=== PATIENT | female | born 1965 | race Caucasian/White ===

== ENCOUNTER 2019-06-27 13:02 | Emergency (ER) | payer OTHER ==
--- NOTE | 2019-06-27 13:12 | PDOC ---
Rapid Medical Evaluation Time Seen by Provider: 06/27/19 13:10 Medical Evaluation: 06/27/19 13:11 I have performed a brief in-person evaluation of this patient. The patient presents with a chief complaint of: "My left knee is swollen." Pertinent physical exam findings: No erythema, bony tenderness, restricted ROM. Minimal swelling to suprapatellar area. I have ordered the following: motrin, xray The patient will proceed to the ED for further evaluation. Discharge Disposition - Diagnosis Left knee pain - Referrals - Patient Instructions - Post Discharge Activity
[2019-06-27] MEDS ORDERED: IBUPROFEN 600 MG TABLET (FP) PO ONE ×2 (13:13→13:23)
[2019-06-27 13:14] VITALS: BP 118/79; PULSE 76; TEMP 98.7; BMI 22.6
--- NOTE | 2019-06-27 14:16 | PDOC ---
History of Present Illness - General Chief Complaint: Pain, Acute Stated Complaint: LT KNEE PAIN Time Seen by Provider: 06/27/19 13:10 History Source: Patient Exam Limitations: No Limitations - History of Present Illness Initial Comments: 06/27/19 14:01 53-year-old female presents to ED with 3 days of left knee pain worsened with ambulation. Patient denies trauma or previous injury to the affected area. Patient states pain an aching sensation without radiation distally or proximally. Patient also denies any skin discoloration history of gout or arthritis. Occurred: reports: other Severity: Yes: mild Lower Extremity Pain Location: left: knee Method of Injury: Yes: other Modifying Factors: improves with: None Lower Ext. Injury Location - Specific Injury Location Knees: left no evidence of injury, left normal range of motion, left non-tender , left normal inspection, left soft tissue tenderness, left deformity, left bone tenderness, left ecchymosis, left joint effusion (mild) Extremity Pain Location - Extremity Pain Location Extremity Pain Locations: left: knee Past History - Travel Traveled outside of the country in the last 30 days: No Close contact w/someone who was outside of country & ill: No - Past Medical History Allergies/Adverse Reactions: Allergies Allergy/AdvReac Type Severity Reaction Status Date / Time No Known Allergies Allergy Verified 06/27/19 13:14 Home Medications: Ambulatory Orders NK [No Known Home Medication] 06/27/19 COPD: No Other medical history: TENDONITIS - Suicide/Smoking/Psychosocial Hx Smoking History: Never smoked Hx Alcohol Use: No Drug/Substance Use Hx: No Patient Lives Alone: No Lives with/in: spouse/SO Review of Systems - Review of Systems Able to Perform ROS?: Yes Constitutional: No: Symptoms Reported Musculoskeletal: Yes: Joint Pain (left knee) Integumentary: No: Symptoms Reported Neurological: No: Symptoms reported Hematologic/Lymphatic: No: Symptoms Reported *Physical Exam - Vital Signs Last Vital Signs Temp Pulse Resp BP Pulse Ox 98.7 F 76 16 118/79 98 06/27/19 13:10 06/27/19 13:10 06/27/19 13:10 06/27/19 13:10 06/27/19 13:10 - Physical Exam General Appearance: Yes: Nourished, Appropriately Dressed. No: Apparent Distress Vascular Pulses: Doralis-Pedis (L): 2+ Extremity: positive: Normal Capillary Refill, Normal Inspection, Normal Range of Motion, Swelling (mild effusion noted bilaterally of patella). negative: Tender, Pedal Edema, Calf Tenderness Integumentary: positive: Normal Color, Warm, Moist Neurologic: positive: Motor Strength 5/5 (ambulatory) ED Treatment Course - Medications Given in the ED: ED Medications Discontinued Medications Generic Name Dose Route Start Last Admin Trade Name Rito PRN Reason Stop Dose Admin Ibuprofen 600 mg 06/27/19 13:13 06/27/19 13:25 Motrin - PO 06/27/19 13:14 600 mg ONCE ONE Administration Medical Decision Making - Medical Decision Making 06/27/19 14:09 CC: left knee pain with ambulation along with swelling x 3 days Exam: noted mild edema surrounding patella Plan: knee xray and motrin 06/27/19 15:15 Knee x-ray negative for pathology. Patient will be given an Rustam wrap along with orthopnea referral and supportive care instructions *DC/Admit/Observation/Transfer Diagnosis at time of Disposition: Left knee pain - Discharge Dispostion Disposition: HOME Condition at time of disposition: Good - Referrals Referrals: Adrianna Collins MD [Primary Care Provider] - Ron Lezama MD [Staff Physician] - - Patient Instructions Printed Discharge Instructions: DI for Knee Pain Additional Instructions: Wear rustam wrap during the day but remove at night. Continue with this for the next 3 days. If no improvement with discomfort and swelling please follow up with referred orthopedist. May also recommend taking Motrin 400-600 mg every 8 hours for discomfort. - Post Discharge Activity
== END 2019-06-27 15:19 | disposition home or self-care (01) ==
LOC: JERFT 13:02
DX: M25.562 Pain in left knee (principal)
CPT/HCPCS: 73560-TC-LT-FY; 99282-25

== ENCOUNTER 2024-05-07 16:03 | Emergency (ER) | payer OTHER ==
[2024-05-07 16:25] VITALS: BP 128/63; PULSE 73; RESP 18; TEMP 98.1; BMI 19.4
[2024-05-07] MEDS ORDERED: FAMOTIDINE 20 MG/50 ML IVPB 20 MG/50 ML MG IVPB ONE (18:03)
[2024-05-07] MEDS ORDERED: MAG HYDROX/AL HYDROX/SIMETH 30 ML UNIT-DOSE CUP ONE (18:03)
[2024-05-07 18:14] LABS: BASO % 0.5 % (0-2.0); EOS % 1.1 % (0-4.5); HEMATOCRIT 39.3 % (32.4-45.2); HEMOGLOBIN 12.7 GM/dL (10.7-15.3); LYMPH % 31.3 % (8-40); MCH 27.3 pg (25.7-33.7); MCHC 32.3 g/dl (32.0-36.0); MEAN CELL VOLUME 84.3 fl (80-96); MEAN PLT VOLUME 7.3 fl (7.5-11.1); MONO % 6.3 % (3.8-10.2); NEUT % 60.8 % (42.8-82.8); PLATELET COUNT 314 10^3/uL (134-434); RBC 4.66 M/mm3 (3.60-5.2); RDW 13.9 % (11.6-15.6); WHITE BLOOD COUNT 6.3 K/mm3 (4.0-10.0)
[2024-05-07] MEDS: MAG HYDROX/AL HYDROX/SIMETH 30 ML UNIT-DOSE CUP PO ONE (18:22)
[2024-05-07] MEDS: SODIUM CHLORIDE 0.9% 500 ML INFUS.BAG IV ONE (18:22)
[2024-05-07] MEDS: FAMOTIDINE 20 MG/50 ML IVPB 20 MG/50 ML MG IVPB ONE (18:22)
[2024-05-07 18:25] LABS: POTASSIUM 3.7 mmol/L (3.5-5.1)
[2024-05-07 18:26] LABS: CALCIUM 9.5 mg/dL (8.5-10.1)
[2024-05-07 18:27] LABS: ALBUMIN 3.8 g/dl (3.4-5.0); BLOOD UREA NITROGEN 9.6 mg/dL (7-18)
[2024-05-07 18:30] LABS: CREATININE 0.5 mg/dL (0.55-1.3)
[2024-05-07 18:32] LABS: BILIRUBIN,TOTAL 0.3 mg/dL (0.2-1); TOT PROT 6.8 g/dl (6.4-8.2)
[2024-05-07] MEDS ORDERED: MAGNESIUM CITRATE 300 ML BOTTLE ONE (18:49)
[2024-05-07] MEDS: MAGNESIUM CITRATE 300 ML BOTTLE PO ONE (18:49)
== END 2024-05-07 18:50 | disposition home or self-care (01) ==
LOC: JER 16:03
PROC: 3E033GC Introduction of Other Therapeutic Substance into Peripheral Vein, Percutaneous Approach (ICD-10-PCS; principal; 2024-05-07)
DX: R10.84 Generalized abdominal pain (principal); K59.00 Constipation, unspecified; R19.7 Diarrhea, unspecified
CPT/HCPCS: 36415; 80053; 85025; 99284-25